=== PATIENT | female | born 1935 | race Caucasian/White ===

== ENCOUNTER 2016-12-14 09:26 | Outpatient (CLI) | payer OTHER ==
--- NOTE | 2016-12-14 11:27 | DIAGNOSTIC IMAGING REPORT ---
PROCEDURE: DEXA BONE DENSITY STUDY CLINICAL INDICATION: SCREENING COMPARISON: DEXA scan 11/27/2013 FINDINGS: LUMBAR SPINE: Bone mineral density 1.035, T-score -0.1, normal (previously bone mineral density 1.058, T-score 0.1, 2.1% bone mineral density loss). LEFT HIP: Bone mineral density 0.845, T-score -0.8, normal (previously bone mineral density 0.914, T-score -0.2, 7.5% bone mineral density loss) LEFT FEMORAL NECK: Bone mineral density 0.662, T-score -1.7, osteopenia (previously bone mineral density 0.710, T-score -1.2, 6.8% bone mineral density loss). Left forearm: Bone mineral density 0.580, T-score -1.8, osteopenia (previously bone mineral density 0.576, T-score -1.9, 0.8% bone mineral density increase). (T score greater or equal to -1.0 to: NORMAL) (T score from -1.1 to -2.4: OSTEOPENIA) (T score ess than or equal to -2.5: OSTEOPOROSIS) IMPRESSION: 1. Normal lumbar spine bone mineral density with 2.1% bone mineral density loss 2. Left hip osteopenia with femoral neck 6.8% bone mineral density loss 3. Left forearm osteopenia, stable 4. 10-year fracture risk: Major osteoporotic fracture 20%, hip fracture 4.8%.
--- NOTE | 2016-12-22 09:53 | DIAGNOSTIC IMAGING REPORT ---
PROCEDURE: MG BILATERAL SCREENING W/CAD INDICATION: SCREENING TECHNIQUE: Bilateral CC and MLO digital views. COMPARISON: Mammograms 11/14/2013, 08/17/2011 and 08/09/2010. FINDINGS: Computer-aided detection applied. Mildly dense. No change. IMPRESSION: 1. Negative mammogram RESULT CODE: 1- Negative. A. A negative report should not delay biopsy if a dominant or clinically suspicious mass is present. 10-15% of cancers are not identified by x-ray. B. A negative report may reinforce clinical impression. C. Adenosis and dense breasts may obscure an underlying neoplasm. D. False positive reports average 6-10%. E.. A yearly screening mammogram is recommended. A reminder letter will be scheduled.
== END 2016-12-14 23:00 ==
LOC: MAM SRH 09:26 → XR SRH 10:45 → MAM SRH 23:00
DX: M85.88 Other specified disorders of bone density and structure, other site (principal)